=== PATIENT | female | born 1995 | race Caucasian/White ===

== ENCOUNTER 2016-11-26 18:42 | Emergency (ER) | payer MEDICAID ==
[~2016-11-26] VITALS: Ht 172.7 cm; Wt 153.8 kg
[~2016-11-26 18:42] MED LIST: FLUT0.0531; LORA5CHW6; METF-312
[2016-11-26 18:55] VITALS: BP 126/50
== END 2016-11-26 22:10 | disposition left against medical advice (07) ==
LOC: ER 18:46
DX: R10.2 Pelvic and perineal pain (principal); Z53.21 Procedure and treatment not carried out due to patient leaving prior to being seen by health care provider

== ENCOUNTER 2019-09-12 17:24 | Emergency (ER) | payer MEDICAID ==
[~2019-09-12] VITALS: Ht 172.7 cm; Wt 150.8 kg
[~2019-09-12 17:24] MED LIST changes: -METF-312; +METF-370
[2019-09-12 18:33] LABS: Eosinophils # (auto) 0.1 uL; Monocytes # (auto) 0.5 uL; Neutrophils # (auto) 8.4 uL
[2019-09-12 18:37] LABS: Basophils # (auto) 0.1 uL; Basophils % (auto) 0.8 % (0.0-2.0); Eosinophils % (auto) 0.7 % (0.0-7.0); Hematocrit 39.7 % (36.0-46.0); Hemoglobin 13.2 g/dL (12.2-16.2); Lymphocytes # (auto) 1.6 uL; Lymphocytes % (auto) 14.6 % (10.0-50.0); Mean Corpuscular Hemoglobin 26.4 pg (28.0-32.0); Mean Corpuscular Hgb Conc. 33.2 g/dL (32.0-36.0); Mean Corpuscular Volume 79.6 fL (80.0-100.0); Monocytes % (auto) 5.1 % (0.0-12.0); Neutrophils % (auto) 78.8 % (37.0-80.0); Platelet Count (auto) 187 10^3/uL (140-450); Red Blood Cells 4.99 10^6/uL (4.0-5.20); Red Cell Distribution Width 16.4 % (11.8-14.3); White Blood Cell 10.7 10^3/uL (4.4-10.8)
[2019-09-12 18:41] LABS: Urine Bacteria FEW /hpf (None Seen); Urine Blood Negative /uL (Negative); Urine Hyaline Cast FEW /lpf (0 - 2); Urine Mucus FEW (None Seen); Urine Specific Gravity 1.027 (1.001-1.035); Urine WBC 3 /hpf (0 - 5)
[2019-09-12 18:55] LABS: BUN/Creatinine Ratio 7.3; Calcium 8.8 mg/dL (8.5-10.1); Potassium 3.6 mmol/L (3.5-5.1)
[2019-09-12 19:08] LABS: Bilirubin, Total 0.3 mg/dL (0.2-1.0)
[2019-09-12] MEDS ORDERED: ONDANSETRON HCL 4 MG/2 ML VIAL IV ONE (20:45)
[2019-09-12] MEDS ORDERED: SODIUM CHLORIDE 0.9% 1,000 ML IV ONE (20:45)
[2019-09-12 22:09] VITALS: BP 107/68
== END 2019-09-12 22:10 | disposition home or self-care (01) ==
LOC: ER 17:28
DX: O21.8 Other vomiting complicating pregnancy (principal); O26.892 Other specified pregnancy related conditions, second trimester; G89.4 Chronic pain syndrome; O24.912 Unspecified diabetes mellitus in pregnancy, second trimester; O99.512 Diseases of the respiratory system complicating pregnancy, second trimester; J45.909 Unspecified asthma, uncomplicated; O99.322 Drug use complicating pregnancy, second trimester; F12.10 Cannabis abuse, uncomplicated; Z3A.20 20 weeks gestation of pregnancy; Z88.6 Allergy status to analgesic agent; Z90.49 Acquired absence of other specified parts of digestive tract
CPT/HCPCS: 36415; 76805; 80053; 81001; 81025; 84702; 85025; 96361; 96374; 99284; J2405

== ENCOUNTER 2023-01-29 15:41 | Inpatient (IN) | payer MEDICAID, OTHER ==
[~2023-01-29] VITALS: Ht 172.7 cm; Wt 135.2 kg
[2023-01-29] MEDS ORDERED: MORPHINE SULFATE 4 MG/ML SYR/VIAL IV ONE (16:45)
[2023-01-29] MEDS ORDERED: ONDANSETRON HCL 4 MG/2 ML VIAL IV ONE (16:45)
[2023-01-29 20:07] LABS: Urine Bacteria NONE SEEN /hpf (None Seen); Urine Blood Negative /uL (Negative); Urine Specific Gravity 1.019 (1.001-1.035); Urine WBC 2 /hpf (0 - 5)
[2023-01-29] MEDS: SODIUM CHLORIDE 0.9% 1,000 ML IV SCH (22:30)
[2023-01-29] MEDS: ONDANSETRON HCL 4 MG/2 ML VIAL IV PRN (22:40)
[2023-01-29] MEDS: MORPHINE SULFATE INJ 2 MG/ml SYRG IV PRN (22:50)
[2023-01-30] VITALS (7 sets, daily range): BP systolic 112–127; BP diastolic 62–79
[2023-01-30] MEDS: ONDANSETRON HCL 4 MG/2 ML VIAL IV PRN ×5 (02:34→22:50)
[2023-01-30] MEDS: MORPHINE SULFATE INJ 2 MG/ml SYRG IV PRN ×5 (02:50→22:51)
[2023-01-30] MEDS ORDERED: SERT50TA PO (04:30)
[2023-01-30] MEDS ORDERED: HYDR-4798 PO (04:30)
[2023-01-30] MEDS ORDERED: DULO30CA PO (04:30)
[2023-01-30] MEDS ORDERED: METH750T22 PO (04:30)
[2023-01-30] MEDS ORDERED: PREG100C PO (04:30)
[2023-01-30] MEDS: SODIUM CHLORIDE 0.9% 1,000 ML IV SCH ×2 (04:45→11:18)
[2023-01-30 05:49] LABS: Basophils # (auto) 0 10 ^3/uL (0-0.2); Eosinophils # (auto) 0.2 10 ^3/uL (0-0.8); Hemoglobin 10.5 g/dL (12.2-16.2); Lymphocytes # (auto) 2.2 10 ^3/uL (0.4-5.4); Mean Corpuscular Hgb Conc. 32.3 g/dL (32.0-36.0)
[2023-01-30 05:53] LABS: Basophils % (auto) 0.2 % (0.0-2.0); Eosinophils % (auto) 2.6 % (0.0-7.0); Hematocrit 32.5 % (36.0-46.0); Lymphocytes % (auto) 24.5 % (10.0-50.0); Mean Corpuscular Volume 74.1 fL (80.0-100.0); Monocytes # (auto) 0.5 10 ^3/uL (0-1.3); Monocytes % (auto) 5.1 % (0.0-12.0); Neutrophils % (auto) 67.6 % (37.0-80.0); Nucleated Red Blood Cells % 0.4 %; Red Blood Cells 4.39 10^6/uL (4.0-5.20); Red Cell Distribution Width 15.3 % (11.8-14.3); White Blood Cell 8.8 10^3/uL (4.4-10.8)
[2023-01-30 06:12] LABS: Albumin 3.3 g/dL (3.4-5.0); Calcium 8.4 mg/dL (8.5-10.1); Potassium 3.8 mmol/L (3.5-5.1)
[2023-01-30 06:17] LABS: Bilirubin, Total 0.6 mg/dL (0.2-1.0); Total Protein 6.6 g/dL (6.4-8.2)
[2023-01-30] MEDS: METHOCARBAMOL 500 MG TAB PO SCH ×2 (10:11→21:20)
[2023-01-30] MEDS: ENOXAPARIN SOD 40 MG/0.4 ML SYRINGE SC SCH (10:11)
[2023-01-30] MEDS: HYDROcodone-ACET 10/325MG TAB PO PRN ×2 (11:18→20:16)
[2023-01-30] MEDS ORDERED: CARI1CAP PO (19:17)
[2023-01-30] MEDS ORDERED: OMEP20TA PO (19:17)
[2023-01-30] MEDS ORDERED: AMPH10TA2 PO (19:17)
[2023-01-31] VITALS (7 sets, daily range): BP systolic 118–170; BP diastolic 63–90
[2023-01-31] MEDS: MORPHINE SULFATE INJ 2 MG/ml SYRG IV PRN (02:56)
[2023-01-31] MEDS: HYDROmorphone HCL 2 MG/ML VL/or syr IV PRN ×4 (04:48→20:56)
[2023-01-31] MEDS: ONDANSETRON HCL 4 MG/2 ML VIAL IV PRN ×4 (04:48→20:55)
[2023-01-31] MEDS: SODIUM CHLORIDE 0.9% 1,000 ML IV SCH ×3 (05:04→18:30)
[2023-01-31] MEDS ORDERED: PANTOPRAZOLE 40 MG TAB PO ONE (11:00)
[2023-01-31] MEDS ORDERED: SERTRALINE HCL 50 MG TAB PO ONE (11:00)
[2023-01-31] MEDS ORDERED: DULoxetine HCL 30 MG CAP PO ONE (11:00)
[2023-01-31] MEDS ORDERED: PREGABALIN 25 MG CAP PO ONE (11:00)
[2023-01-31] MEDS: ENOXAPARIN SOD 40 MG/0.4 ML SYRINGE SC SCH (11:13)
[2023-01-31] MEDS: METHOCARBAMOL 500 MG TAB PO SCH ×2 (11:14→22:49)
[2023-01-31] MEDS: HYDROcodone-ACET 10/325MG TAB PO PRN ×2 (14:28→22:49)
[2023-01-31] MEDS: DOCUSATE SOD 100 MG CAP PO PRN (14:30)
[2023-01-31] MEDS: PREGABALIN 25 MG CAP PO SCH (22:47)
[2023-01-31] MEDS: DULoxetine HCL 30 MG CAP PO SCH (22:48)
[2023-02-01] MEDS: SODIUM CHLORIDE 0.9% 1,000 ML IV SCH ×3 (00:15→17:44)
[2023-02-01] MEDS: ONDANSETRON HCL 4 MG/2 ML VIAL IV PRN ×6 (02:11→21:35)
[2023-02-01] MEDS: HYDROmorphone HCL 2 MG/ML VL/or syr IV PRN ×6 (02:22→21:35)
[2023-02-01 05:00] VITALS: BP 120/66
[2023-02-01 05:53] LABS: Basophils # (auto) 0 10 ^3/uL (0-0.2); Basophils % (auto) 0.4 % (0.0-2.0); Eosinophils # (auto) 0.2 10 ^3/uL (0-0.8); Hemoglobin 10.3 g/dL (12.2-16.2); Lymphocytes # (auto) 1.5 10 ^3/uL (0.4-5.4); Monocytes # (auto) 0.4 10 ^3/uL (0-1.3); Neutrophils # (auto) 5.7 10 ^3/uL (1.6-8.6)
[2023-02-01 05:55] LABS: Eosinophils % (auto) 2.7 % (0.0-7.0); Hematocrit 32.1 % (36.0-46.0); Lymphocytes % (auto) 19.1 % (10.0-50.0); Mean Corpuscular Hemoglobin 23.9 pg (28.0-32.0); Mean Corpuscular Volume 74.4 fL (80.0-100.0); Monocytes % (auto) 4.6 % (0.0-12.0); Neutrophils % (auto) 73.2 % (37.0-80.0); Red Blood Cells 4.31 10^6/uL (4.0-5.20); Red Cell Distribution Width 15.5 % (11.8-14.3); White Blood Cell 7.8 10^3/uL (4.4-10.8)
[2023-02-01 06:13] LABS: BUN/Creatinine Ratio 14.3 (10.0-20.0); Calcium 8.6 mg/dL (8.5-10.1)
[2023-02-01] MEDS: HYDROcodone-ACET 10/325MG TAB PO PRN ×3 (07:10→20:15)
[2023-02-01 08:00] VITALS: BP 129/76
[2023-02-01] MEDS: VRAYLAR 1.5 MG PO SCH (09:04)
[2023-02-01] MEDS: DULoxetine HCL 30 MG CAP PO SCH ×2 (09:10→21:31)
[2023-02-01] MEDS: PREGABALIN 25 MG CAP PO SCH ×2 (09:11→21:47)
[2023-02-01] MEDS: METHOCARBAMOL 500 MG TAB PO SCH ×2 (09:12→21:34)
[2023-02-01] MEDS: SERTRALINE HCL 50 MG TAB PO SCH (09:13)
[2023-02-01] MEDS: PANTOPRAZOLE 40 MG TAB PO SCH (09:13)
[2023-02-01] MEDS: ENOXAPARIN SOD 40 MG/0.4 ML SYRINGE SC SCH (09:16)
[2023-02-01 12:46] LABS: Hepatitis C Antibody Negative (Negative)
[2023-02-01 13:00] VITALS: BP 135/96
[2023-02-01] MEDS: DOCUSATE SOD 100 MG CAP PO PRN (15:51)
[2023-02-01 17:00] VITALS: BP 144/70
[2023-02-01 20:00] VITALS: BP 133/78
[2023-02-01 22:00] VITALS: BP 133/78
[2023-02-02] MEDS: ONDANSETRON HCL 4 MG/2 ML VIAL IV PRN ×3 (01:08→09:44)
[2023-02-02] MEDS: SODIUM CHLORIDE 0.9% 1,000 ML IV SCH ×2 (01:15→09:50)
[2023-02-02] MEDS: HYDROmorphone HCL 2 MG/ML VL/or syr IV PRN ×3 (01:18→09:46)
[2023-02-02] MEDS: HYDROcodone-ACET 10/325MG TAB PO PRN ×3 (03:20→23:53)
[2023-02-02 05:00] VITALS: BP 135/83
[2023-02-02] MEDS: DULoxetine HCL 30 MG CAP PO SCH ×2 (09:42→22:08)
[2023-02-02] MEDS: PREGABALIN 25 MG CAP PO SCH ×2 (09:43→22:08)
[2023-02-02] MEDS: SERTRALINE HCL 50 MG TAB PO SCH (09:43)
[2023-02-02] MEDS: PANTOPRAZOLE 40 MG TAB PO SCH (09:43)
[2023-02-02] MEDS: METHOCARBAMOL 500 MG TAB PO SCH ×2 (09:43→22:09)
[2023-02-02 09:46] VITALS: BP 124/70
[2023-02-02] MEDS: DOCUSATE SOD 100 MG CAP PO PRN ×2 (09:46→22:09)
[2023-02-02] MEDS: VRAYLAR 1.5 MG PO SCH (09:52)
[2023-02-02] MEDS: ENOXAPARIN SOD 40 MG/0.4 ML SYRINGE SC SCH (09:52)
[2023-02-02 13:00] VITALS: BP 138/82
[2023-02-02 16:51] VITALS: BP 107/62
[2023-02-02 22:00] VITALS: BP 124/80
[2023-02-03 05:00] VITALS: BP 106/61
[2023-02-03 08:43] VITALS: BP 122/69
[2023-02-03] MEDS: SERTRALINE HCL 50 MG TAB PO SCH (09:48)
[2023-02-03] MEDS: DULoxetine HCL 30 MG CAP PO SCH (09:48)
[2023-02-03] MEDS: ENOXAPARIN SOD 40 MG/0.4 ML SYRINGE SC SCH (09:48)
[2023-02-03] MEDS: PREGABALIN 25 MG CAP PO SCH (09:49)
[2023-02-03] MEDS: HYDROcodone-ACET 10/325MG TAB PO PRN (09:49)
[2023-02-03] MEDS: VRAYLAR 1.5 MG PO SCH (09:50)
[2023-02-03] MEDS: METHOCARBAMOL 500 MG TAB PO SCH (09:50)
[2023-02-03] MEDS: PANTOPRAZOLE 40 MG TAB PO SCH (09:50)
[2023-02-03 13:57] VITALS: BP 145/64
== END 2023-02-03 16:15 | disposition home health service (06) | DRG 347 ==
LOC: EDBD 15:41 → EDUNIT# 15:41 → ER 15:41 → OVERFLOW 22:16 → EAST 01-30 03:36
PROVIDERS: ADMIT Nurse Practitioner Family; ATTEND Internal Medicine Pulmonary Disease
DX: S32.029A Unspecified fracture of second lumbar vertebra, initial encounter for closed fracture (principal); E66.01 Morbid (severe) obesity due to excess calories; G89.29 Other chronic pain; M47.819 Spondylosis without myelopathy or radiculopathy, site unspecified; Z20.822 Contact with and (suspected) exposure to COVID-19; M51.36 Other intervertebral disc degeneration, lumbar region; M48.061 Spinal stenosis, lumbar region without neurogenic claudication; Z88.6 Allergy status to analgesic agent; Z88.8 Allergy status to other drugs, medicaments and biological substances; V89.2XXA Person injured in unspecified motor-vehicle accident, traffic, initial encounter; Y93.89 Activity, other specified; Y92.89 Other specified places as the place of occurrence of the external cause; Y99.8 Other external cause status; Z68.42 Body mass index [BMI] 45.0-49.9, adult
CPT/HCPCS: 36415; 70450; 72100; 72148; 73502; 80048; 80053; 81001; 85025; 86803; 87340; 87426; 97110; 97116; 97163; 97530; G0378; J2405

== ENCOUNTER 2025-09-20 09:59 | Outpatient (CLI) | payer OTHER ==
[~2025-09-20 09:59] MED LIST changes: +AMPH10TA2 PO; +CARI1CAP PO; +DULO30CA PO; +HYDR-4798 PO; -METF-370; +METH-1182 PO; +OMEP20TA PO; +PREG100C PO; +SERT50TA PO
[2025-09-20 10:15] LABS: Hemoglobin 13.0 g/dL (12.2-16.2); Mean Corpuscular Hemoglobin 26.6 pg (28.0-32.0); Nucleated Red Blood Cells % 0.1 %
[2025-09-20 10:17] LABS: Hematocrit 39.6 % (36.0-46.0); Mean Corpuscular Volume 80.6 fL (80.0-100.0)
[2025-09-20 11:00] LABS: Urine Protein, UAD Negative (Negative)
[2025-09-20 11:11] LABS: Alanine Aminotransferase 12 U/L (7-40); Albumin 4.2 g/dL (3.2-4.8); Alkaline Phosphatase 82 U/L (46-116); Anion Gap 10 (5-15); BUN/Creatinine Ratio 16.9 (10.0-20.0); Blood Urea Nitrogen 10 mg/dL (9-23); Calcium 8.9 mg/dL (8.7-10.4); Carbon Dioxide 26 mmol/L (20-31); Cholesterol 147 mg/dL (< 200); Glucose 82 mg/dL (74-106); Potassium 4.5 mmol/L (3.5-5.1); Sodium 143 mmol/L (136-145); Total Protein 7.0 g/dL (5.7-8.2); Triglycerides 53 mg/dL (< 150)
[2025-09-20 11:12] LABS: Bilirubin, Total 0.4 mg/dL (0.2-1.0)
[2025-09-20 11:17] LABS: Chloride 107 mmol/L (98-107); HDL Cholesterol 38 mg/dL (40-59)
== END 2025-09-20 17:00 | disposition home or self-care (01) ==
LOC: LAB 09:59
PROVIDERS: ATTEND Student in an Organized Health Care Education/Training Program
DX: E55.9 Vitamin D deficiency, unspecified (principal); R73.9 Hyperglycemia, unspecified; R03.0 Elevated blood-pressure reading, without diagnosis of hypertension; R53.82 Chronic fatigue, unspecified; Z79.899 Other long term (current) drug therapy
CPT/HCPCS: 36415; 80053; 80061; 81001; 82306; 83036; 84439; 84443; 85025

== ENCOUNTER → 2025-11-07 | Outpatient (CLI) | payer OTHER | END | disposition home or self-care (01) | LOC: LAB 09:31 | PROVIDERS: ATTEND Student in an Organized Health Care Education/Training Program | DX: Z43.4 Encounter for attention to other artificial openings of digestive tract (principal) | CPT/HCPCS: 36415; 84702 ==